=== PATIENT | female | born 1970 | race Caucasian/White ===

== ENCOUNTER 2018-02-28 22:04 | Emergency (ER) | payer MEDICAID ==
[2018-02-28] MEDS: ALBUTEROL 0.5% (NEB) 2.5 MG/0.5 ML AMP INH (23:17)
[2018-02-28] MEDS: IPRATROPIUM (NEB) 0.5 MG/2.5 ML AMP NEB (23:17)
[2018-02-28] MEDS: DEXAMETHASONE 10 MG/ML 1 ML INJ IM (23:18)
[2018-03-01] MEDS: CEFTRIAXONE 1 GM INJ IM (00:10)
== END 2018-03-01 01:51 | disposition home or self-care (01) ==
LOC: FTE 03-01 01:51
DX: J18.1 Lobar pneumonia, unspecified organism (principal); J45.901 Unspecified asthma with (acute) exacerbation
CPT/HCPCS: 71045; 94644; 96372; 99284-25